=== PATIENT | female | born 1975 | race Two or more races ===

== ENCOUNTER 2025-01-09 13:37 | Emergency (ER) | payer MEDICAID, SELFPAY ==
[2025-01-09 13:47] VITALS: BP 112/69; PULSE 77; RESP 18; TEMP 36.9; O2SAT 95
--- NOTE | 2025-01-09 13:56 | XR_ITS ---
Examination: Abdomen sonogram, Limited Date and time of exam: January 09, 2025 1440 hours INDICATIONS: Epigastric pain beginning 2 days ago Technique: Real-time burnett scale transabdominal sonographic images of the upper abdomen obtained. Findings: Normal gallbladder Normal common bile duct 0.5 cm Pancreatic head 2.3 cm Liver 14.7 cm fatty infiltration smooth contour no focal liver lesions Normal hepatopedal portal venous flow Patent IVC IMPRESSION: Normal gallbladder Fatty liver
--- NOTE | 2025-01-09 13:57 | EDNOTE_ITS ---
<Statement entered by Shannon Steele MD - 01/09/25 17:41> As co-signing physician, I was present and available for consult prn. I concur with the plan and care as documented by the midlevel provider. ED Abdominal Pain RME/HPI General Chief Complaint: Abdominal Pain Stated complaint: Abdominal Pain since last night Time seen by provider: 01/09/25 13:52 Arrival date/time: 01/09/25 13:37 49-year-old female with no known medical history presents to the emergency room with a chief complaint of 7 out of 10 epigastric pain x 2 days Source: patient Mode of arrival: ambulatory Limitations: no limitations Related Data Home Medications ?Medication ?Instructions ?Recorded ?Confirmed gabapentin 300 mg capsule 300 mg PO TID 07/04/2410/17 Previous Rx's ?Medication ?Instructions ?Recorded ibuprofen 800 mg tablet 800 mg PO Q8H PRN fever or p ain 07/31/24 #30 tabs ibuprofen 800 mg tablet 800 mg PO Q8H PRN pain #30 t abs 10/11/24 Allergies Allergy/AdvReac Type Severity Reaction Status Date / Time No Known Drug Allergies Allergy Verified 10/17/24 16:14 Review of Systems Review of Systems Systems Reviewed: All systems reviewed, normal except as documented Constitutional Constitutional: Reports system reviewed and no additional complaints, except as documented, Denies fatigue, Denies fever(s), Denies headache(s) and Denies weakness Eyes Eyes: Reports system reviewed and no additional complaints, except as documented, Denies blurry vision and Denies change in vision ENT Ears, Nose, Mouth, and Throat: Reports system reviewed and no additional complaints, except as documented, Denies otalgia, Denies headache(s), Denies nasal congestion, Denies throat swelling and Denies vertigo Cardiovascular Cardiovascular: Reports system reviewed and no additional complaints, except as documented, Denies chest pain, Denies dyspnea and Denies dyspnea on exertion Respiratory Respiratory: Reports system reviewed and no additional complaints, except as documented, Denies chest congestion, Denies cough, Denies dyspnea, Denies dyspnea on exertion and Denies wheezing Gastrointestinal Gastrointestinal: Reports system reviewed and no additional complaints, except as documented, Reports abdominal pain, Reports cramping, Reports dyspepsia, Denies nausea and Denies vomiting Genitourinary Genitourinary: Reports system reviewed and no additional complaints, except as documented Musculoskeletal Musculoskeletal: Reports system reviewed and no additional complaints, except as documented and Denies back pain Integumentary/Breasts Skin/Breast: Reports system reviewed and no additional complaints, except as documented and Denies wounds Neurologic Neurologic: Reports system reviewed and no additional complaints, except as documented, Denies confusion, Denies headache(s), Denies lack of coordination, Denies vertigo and Denies weakness Psychiatric Psychiatric: Reports system reviewed and no additional complaints, except as documented, Denies anxiety, Denies confusion, Denies depression, Denies paranoia, Denies suicidal ideation and Denies tactile hallucinations Endocrine Endocrine: Reports system reviewed and no additional complaints, except as documented and Denies fatigue Hematologic/Lymphatic Hematologic/Lymphatic: Reports system reviewed and no additional complaints, except as documented and Denies lymphadenopathy Allergic/Immunologic Allergic/Immunologic: Reports system reviewed and no additional complaints, except as documented, Denies throat swelling, Denies urticaria and Denies wheezing ED Exam General Limitations: Present no limitations General appearance: Present alert and in no apparent distress Head Head exam: Present atraumatic Eye Eye exam: Present normal appearance, PERRL and EOMI ENT ENT exam: Present normal exam, normal oropharynx and mucous membranes moist Neck Neck exam: Present normal inspection, full ROM and trachea midline Chest Chest inspection: Present normal inspection and symmetric chest wall rise Respiratory Respiratory exam: Present normal lung sounds bilaterally Cardiovascular Cardiovascular exam: Present regular rate, normal rhythm and normal heart sounds Abdominal Exam Abdominal exam: Present soft, tenderness and normal bowel sounds; Absent distention, guarding, rebound or Mondragon's sign Abdominal tenderness: Present epigastrium and moderate; Absent RLQ, LUQ or LLQ Extremities Exam Extremities exam: Present normal inspection and full ROM Back Exam Back exam: Present normal inspection and full ROM Neurological Exam Neurological exam: Present alert, oriented X3 and CN II-XII intact Psychiatric Psychiatric exam: Present normal affect and normal mood Skin Skin exam: Present warm, dry, intact and normal color Course Quality Measures none Orders Category Date Time Status US gall bladder Stat Exams 01/09/25 13:56 Completed CBC Stat Lab 01/09/25 14:13 Completed CMP [Comprehensive Metabolic Panel] Stat Lab 01/09/25 14:13 Completed HCG Qualitative,Urine Stat Lab 01/09/25 14:15 Completed Lipase Stat Lab 01/09/25 14:13 Completed UA [Urinalysis] Stat Lab 01/09/25 14:15 Completed Urine Culture Stat Lab 01/09/25 14:15 Received HYDROcodone*/APAP 5/325 [[place] 5/325] Med 01/09/25 13:57 Discontinued 1 tab PO X1 ONE Ondansetron Odt [Zofran Odt] Med 01/09/25 13:57 Discontinued 4 mg PO X1 ONE mg Hyd/Al Hyd/Jhony Susp [Maalox Susp] Med 01/09/25 13:57 Discontinued 30 ml PO X1 ONE Vital Signs Vital signs: Vital Signs Temperature 98.5 F 01/09/25 13:47 Pulse Rate 77 01/09/25 13:47 Respiratory Rate 18 01/09/25 13:47 Blood Pressure 112/69 01/09/25 13:47 Pulse Oximetry (%) 95 01/09/25 13:47 Oxygen Delivery Method Room Air 01/09/25 13:47 O2 saturation 95% within normal limits Abdominal Pain MDM MDM Narrative MDM Narrative:: 49-year-old female with no known medical history presents to the emergency room with a chief complaint of 7 out of 10 epigastric pain x 2 days Patient is hemodynamically stable and in no apparent distress Physical examination shows 7 out of 10 epigastric pain. The patient has a soft nontender lower abdomen. Patient denies any dysuria, hematuria, nausea, vomiting. There is no right lower quadrant abdominal pain. The patient has a negative Mondragon sign. Ultrasound of the gallbladder was completed and shows no cholecystitis and no cholelithiasis. There is a fatty liver CBC CMP and UA were negative for any acute findings Patient was discharged and educated to follow-up with primary care provider and return to the emergency room for any evidence of worsening signs or symptoms Patient data External records reviewed:: [facility] previous records Clinical information provided by:: patient Social determinants that could affect healthcare access:: none Patient has the following chronic illnesses:: No chronic illness How is presenting disease/condition affected by chronic disease/condition?: no chronic disease Evaluation data The following diagnostics were reviewed and interpreted by me:: lab results and radiology exam(s) Lab and/or radiology exams considered but not ordered:: No chronic illnesses Interpretation Summary: Ultrasound gallbladder-Findings: Normal gallbladder Normal common bile duct 0.5 cm Pancreatic head 2.3 cm Liver 14.7 cm fatty infiltration smooth contour no focal liver lesions Normal hepatopedal portal venous flow Patent IVC IMPRESSION: Normal gallbladder Fatty liver Medications / Prescriptions Medications or Prescriptions considered but not ordered:: Medication given Medication administrations:: Medication Administration History Discontinued Medications Hydrocodone Bitart/Acetaminophen (Hydrocodone/Apap 5/325 Tablet) 1 tab PO X1 ONE Stop: 01/09/25 13:58 Last Admin: 01/09/25 14:13 Dose: 1 tab Documented By: OA Al Hydrox/Mg Hydrox/Simethicone (Mg Hyd/Al Hyd/Jhony (Maalox Reg) Susp 30 Ml Udc) 30 ml PO X1 ONE Stop: 01/09/25 13:58 Last Admin: 01/09/25 14:13 Dose: 30 ml Documented By: OA Ondansetron HCl (Ondansetron Odt 4 Mg Tabrap) 4 mg PO X1 ONE; Protocol Stop: 01/09/25 13:58 Last Admin: 01/09/25 14:12 Dose: 4 mg Documented By: OA Medication given Consultations Consultation(s) initiated? (list below): No Diagnosis Differential diagnosis abdominal pain: abdominal pain, gastroenteritis and other (Cholelithiasis/cholecystitis) Most likely diagnosis given after review of the tests above:: Gastroenteritis Admission Indicated Admission indicated?: not indicated Admission Request Was there a request for admission?: No Disposition Plan Disposition Plan: Discharge Discharge Attestation Discharge Attestation: The patient and all family members were given an opportunity to ask questions and understood the discharge instructions. Discharge instructions specifically effects, indications for sooner follow up or return to the emergency department, and the expected course of current diagnosis. Patient condition: Stable Discharge Plan Plan Patient Disposition: HOME (Self Care) Disposition Comment: Stable Prescriptions/Referrals Prescriptions/Med Rec: No Action gabapentin 300 mg capsule 300 mg PO TID ibuprofen 800 mg tablet 800 mg PO Q8H PRN (Reason: fever or pain) Qty: 30 0RF ibuprofen 800 mg tablet 800 mg PO Q8H PRN (Reason: pain) Qty: 30 0RF Problem List Clinical Impression: Gastroenteritis Patient/Caregiver Discharge Instructions Education Materials: ED Gastroenteritis, Noninfectious Additional Instructions: Please follow-up with your primary care provider in the next 24 to 48 hours. The ultrasound of your gallbladder was completed and was negative for any acute findings. Please make an appointment with your primary care provider for further evaluation For any evidence of worsening signs or symptoms return to the emergency room immediately Print Language: Thai Stand Alone Forms: Radha Award Info., Patient Portal Info Letter PA/PET CARE TECHNICIAN Supervising Physician PA/PET CARE TECHNICIAN Supervising Physician: Dr. Steele
[2025-01-09] MEDS: ONDANSETRON ODT 4 MG TABRAP PO (14:12)
[2025-01-09] MEDS: MG HYD/AL HYD/SIME (Maalox Reg) SUSP 30 ML UDC PO (14:13)
[2025-01-09] MEDS: HYDROcodone/APAP 5/325 TABLET 1 TAB PO (14:13)
[2025-01-09 14:31] LABS: Collection Type, Urine Clean Catch
[2025-01-09 14:32] LABS: Basophils % (Auto) 0 % (0-2.5); Eosinophils # (Auto) 0.2 Thou/mm3 (0.0-0.5); Eosinophils % (Auto) 2 % (0-10); Hematocrit 39.1 % (36.0-46.0); Immature Granulocytes % (Auto) 1 % (0-0); Immature Granulocytes Auto 0.05 Thou/mm3 (0.00-0.00); Lymphocytes % (Auto) 34 % (10-50); Mean Corpuscular HGB Conc 33.2 g/dl (31.0-37.0); Mean Corpuscular Hemoglobin 29.5 pg (25.0-35.0); Mean Corpuscular Volume 89 fL (80-100); Monocytes # (Auto) 0.8 Thou/mm3 (0.0-0.8); Monocytes % (Auto) 9 % (0-12); Neutrophils # (Auto) 4.9 Thou/mm3 (1.8-7.7); Neutrophils % (Auto) 55 % (37-80); Nucleated Red Blood Cell % 0 /100 WBC (0); Platelet Count 238 Thou/mm3 (140-440); RDW Standard Deviation 45.2 fL (36.4-46.3); Red Blood Count 4.41 Miln/mm3 (4.00-5.20); White Blood Count 8.9 Thou/mm3 (3.6-11.0)
[2025-01-09 14:43] LABS: HCG Qualitative,Urine Negative
[2025-01-09 14:48] LABS: Bacteria,Urine 4+; Bilirubin,Urine Negative (Negative); Blood,Urine 2+ (Negative); Clarity,Urine Turbid (Clear/Hazy); Color,Urine Yellow (Lt Yel-Yel); Glucose, Urine Negative (Negative); Ketones,Urine Trace (Negative); Leukocyte Esterase,Urine Positive (Negative); Nitrite,Urine Positive (Negative); Protein,Urine 1+ (Neg - Trace); RBC,Urine 8 /hpf (0-3); Specific Gravity,Urine 1.032 (1.001-1.035); Squamous Epithelial Cell,Urine 8 /hpf (0-5); Urobilinogen,Urine Negative mg/dL (0.0-1.0); WBC,Urine 20 /hpf (0-5)
[2025-01-09 14:53] LABS: Alanine Aminotransferase 22 U/L (10-49); Albumin, Serum 4.3 gm/dL (3.5-5.0); Albumin/Globulin Ratio 1.6 (1.2-2.2); Alkaline Phosphatase 94 U/L (46-116); Anion Gap 7 (7-16); Aspartate Amino Transferase 25 U/L (0-34); BUN/Creatinine Ratio 29 Ratio (12-20); Bilirubin,Total 0.3 mg/dL (0.3-1.2); Blood Urea Nitrogen 20 mg/dL (9-23); Calcium 8.9 mg/dL (8.3-10.6); Calcium (Corrected) 8.9 mg/dL (8.5-10.1); Carbon Dioxide 28.3 mMol/L (20.0-31.0); Chloride 109 mMol/L (98-107); Creatinine (Component) 0.7 mg/dL (0.6-1.3); Estimated Creatinine Clearance 113.6 mL/min (>60); Globulin 2.7 gm/dL (2.3-3.5); Glucose 86 mg/dL (74-106); Lipase 60 U/L (12-53); Osmolality,Calculated 288 (275-295); Potassium 3.7 mMol/L (3.4-5.1); Sodium 144 mMol/L (136-145); eGFR > 60 See Note
== END 2025-01-09 15:51 | disposition home or self-care (01) ==
LOC: SERX 16:29
PROVIDERS: Nurse Practitioner Family; Emergency Provider Emergency Medicine; PCP Nurse Practitioner Family
DX: K52.9 Noninfective gastroenteritis and colitis, unspecified (principal); K76.0 Fatty (change of) liver, not elsewhere classified
CPT/HCPCS: 36415; 76705; 80053; 81001; 81025; 83690; 85025; 87077; 87086; 87186; 99284; Q0162; A9270

== ENCOUNTER 2025-02-13 20:34 | Emergency (ER) | payer MEDICAID, SELFPAY ==
[2025-02-13 20:52] VITALS: BP 110/68; PULSE 81; RESP 18; TEMP 36.7; O2SAT 96
--- NOTE | 2025-02-13 21:00 | PD.EDLOWEX ---
Lower Extremity Injury RME/HPI General Chief Complaint: Extremity Injury, Lower Stated Complaint: RIGHT SIDE PAIN AFTER FALL Time Seen by Provider: 02/13/25 20:54 Arrival date/time: 02/13/25 20:34 RME / HPI RME / HPI Narrative: This section includes all my notes and documentations, including HPI, PE, and ED course. Cirilo Avina MD HPI: 49yo female presents to the ED for a chief complaint of right lower back pain. Patient states she was walking out of her house when she tripped and fell, landing on her right side earlier tonight just CLERICAL COORDINATOR. She states she has since developed right lower back pain. She denies any head strikes or loss of consciousness. She denies any headache, neck pain, extremity pain, chest pain or any other associated symptoms. No other complaints reported. ROS: All negative except as documented in HPI. Physical Exam: General: Alert and oriented. In obvious pain. Eyes: Conjunctivae and lids clear. ENT: No nasal congestion. Neck: Supple. Heart: RRR. Lungs: No respiratory distress. Good air movement. No rhonchi, wheezing, rales. Abdomen: Soft and nontender. Back: Lower back tenderness. Legs: No clubbing, cyanosis, edema. Skin: Warm and dry. Neuro: Alert and oriented X 3. No peripheral motor deficits. I reviewed all diagnostic test results. My interpretation of the right femur x-ray is no acute findings. My review of the CT report is L5-S1 disc bulging. At this point, diagnoses include right sciatic nerve pain. Treatment here included morphine 10 mg IM. Significant improvement noted. Recommended supportive care and more outpatient workup. Based on my best medical judgment, made decision no further evaluation or treatment indicated at this time. Patient understands and agrees to the discharge instructions customized and printed, see below. Discharge Instructions from Dr. Avina: --After evaluation, we are dealing with Sciatica (same as Lumbar Radiculopathy or Spinal Stenosis). Disc bulging is pinching the nerve going into your right leg. There is no cure. But time (several weeks) can heal the condition. --This condition is difficult because normal pain medications don?t work very well on nerve pain. --Despite the pain, try to resume your normal chores and activities. Because inactivity is terrible for this condition. And activity won?t make your condition worse. Use a cane of stick in your left hand to help stand and walk. --Use Ibuprofen and Tylenol with codeine and lidocaine patches as needed. Don't expect the pain to go away completely, hoping to take the edge off. --When resting and sleeping, try left sided position (with your knees to your chest and bending forward). This can take some pressure off the nerve and help your pain. --Apply ice or heat if helpful. --See a private doctor (outside the ER) on 02/18/2025 for recheck and further care. Ask to help you get more care not available here in the ER. Such as MRI imaging, physical therapy, and referrals to see specialists. Some choose to have surgery for this condition. But you need to have MRI imaging to confirm the diagnosis and assess the severity to get the best treatments. --Seek immediate medical care with paralysis in your foot, losing control of your bladder or bowels, saddle numbness (anal numbness), or with any concerns. Cirilo Avina MD Related Data Home Medications ?Medication ?Instructions ?Recorded ?Confirmed gabapentin 300 mg capsule 300 mg PO TID 07/04/24 10/17/24 Previous Rx's ?Medication ?Instructions ?Recorded ibuprofen 800 mg tablet 800 mg PO Q8H PRN fever or pain 07/31/24 #30 tabs ibuprofen 800 mg tablet 800 mg PO Q8H PRN pain #30 tabs 10/11/24 acetaminophen 300 mg-codeine 30 mg 2 tab PO Q8H PRN pain #20 tabs 02/13/25 tablet ibuprofen 800 mg tablet 800 mg PO Q8H PRN pain #30 tabs 02/13/25 lidocaine 5 % topical patch 2 patch topical QDAY PRN pain #30 02/13/25 (Lidoderm) ea Allergies Allergy/AdvReac Type Severity Reaction Status Date / Time No Known Drug Allergies Allergy Verified 10/17/24 16:14 Review of Systems Review of Systems Systems Reviewed: All systems reviewed, normal except as documented Past Medical History Past Medical History NEUROLOGIC: Negative Neurological Disorders or Seizures CARDIAC: Positive Hypercholesterolemia; Negative Cardiac Disorders or Congestive Heart Failure RESPIRATORY: Negative Chronic Obstructive Pulmonary Disease (COPD) GASTROINTESTINAL: Negative Gastrointestinal Disorders GENITOURINARY: Negative Genitourinary Disorders or Renal Disease MUSCULOSKELETAL: Negative Musculoskeletal Disorders ENDOCRINE: Negative Diabetes Mellitus Type 1 or Diabetes Mellitus Type 2 HEMATOLOGIC: Positive Anemia OTHER HISTORY: Negative Blood Transfusions, Blood Transfusion Reaction or Anesthesia Reactions Surgical History SURGICAL: Positive Hysterectomy and Section Social History SMOKING STATUS: Never smoker SECOND HAND EXPOSURE: No SUBSTANCE USE: does not use ED Exam Narrative Physical exam: As noted in HPI. Course Quality Measures none Orders Category Date Time Status CT lumbar spine wo con Stat Exams 02/13/25 21:01 Completed XR femur RT 2V Stat Exams 02/13/25 21:02 Completed Morphine Inj Med 02/13/25 21:01 Discontinued 10 mg IM X1 ONE Vital Signs Vital signs: Vital Signs Temperature 98.1 F 02/13/25 20:52 Pulse Rate 81 02/13/25 20:52 Respiratory Rate 18 02/13/25 20:52 Blood Pressure 110/68 02/13/25 20:52 Pulse Oximetry (%) 96 02/13/25 20:52 Oxygen Delivery Method Room Air 02/13/25 20:52 Extremity Injury, Lower MDM Narrative MDM Narrative:: Scribe Attestation: 02/13/25 - Julia Murillo am scribing for and in the presence of Dr. Avina. Patient data External records reviewed:: [facility] previous records (Per chart review, patient was seen here on 01/09/25 for gastroenteritis.) Clinical information provided by:: patient Social determinants that could affect healthcare access:: none Patient has the following chronic illnesses:: HLD How is presenting disease/condition affected by chronic disease/condition?: uneffected by Evaluation data The following diagnostics were reviewed and interpreted by me:: radiology exam(s) Lab and/or radiology exams considered but not ordered:: none Interpretation Summary: L5-S1 disc bulging Medications / Prescriptions Medications or Prescriptions considered but not ordered:: none Medication administrations:: Medication Administration History Discontinued Medications Morphine Sulfate (Morphine Sulf Inj 10 Mg/Ml Vial) 10 mg IM X1 ONE Stop: 02/13/25 21:02 Last Admin: 02/13/25 21:36 Dose: 10 mg Documented By: OA Morphine Consultations Consultation(s) initiated? (list below): No Diagnosis Extremity Injury, Lower Differential Diagnosis: other (Lumbar spine fracture, lumbar spinal stenosis, lumbar sprain/strain) Most likely diagnosis given after review of the tests above:: right sciatic nerve pain Admission Indicated Admission indicated?: not indicated Explain why admission is indicated or not indicated:: No criteria for admission. Admission Request Was there a request for admission?: No Disposition Plan Disposition Plan: Discharge Discharge Attestation Discharge Attestation: The patient and all family members were given an opportunity to ask questions and understood the discharge instructions. Discharge instructions specifically effects, indications for sooner follow up or return to the emergency department, and the expected course of current diagnosis. Patient condition: Stable Discharge Plan Plan Patient Disposition: HOME (Self Care) Prescriptions/Referrals Prescriptions/Med Rec: New ibuprofen 800 mg tablet 800 mg PO Q8H PRN (Reason: pain) Qty: 30 0RF acetaminophen-codeine 300-30 mg tablet 2 tab PO Q8H MDD 6 PRN (Reason: pain) Qty: 20 0RF lidocaine [Lidoderm] 5 % adhesive patch,medicated 2 patch topical QDAY PRN (Reason: pain) Qty: 30 0RF Rx Instructions: leave on most painful area for up to 12 hrs No Action gabapentin 300 mg capsule 300 mg PO TID ibuprofen 800 mg tablet 800 mg PO Q8H PRN (Reason: fever or pain) Qty: 30 0RF ibuprofen 800 mg tablet 800 mg PO Q8H PRN (Reason: pain) Qty: 30 0RF Referrals: Anil ARMANDO,CARROLL ReyesP [Primary Care Provider] - In 1 week Problem List Clinical Impression: Right sciatic nerve pain Patient/Caregiver Discharge Instructions Discharge Activity: activity as tolerated Education Materials: ED Sciatica Additional Instructions: Discharge Instructions from Dr. Avina: --After evaluation, we are dealing with Sciatica (same as Lumbar Radiculopathy or Spinal Stenosis). Disc bulging is pinching the nerve going into your right leg. There is no cure. But time (several weeks) can heal the condition. --This condition is difficult because normal pain medications don?t work very well on nerve pain. --Despite the pain, try to resume your normal chores and activities.? Because inactivity is terrible for this condition.? And activity won?t make your condition worse.? Use a cane of stick in your left hand to help stand and walk.? --Use Ibuprofen and Tylenol with codeine and lidocaine patches as needed.? Don't expect the pain to go away completely, hoping to take the edge off.?? --When resting and sleeping, try left sided position (with your knees to your chest and bending forward).? This can take some pressure off the nerve and help your pain. --Apply ice or heat if helpful. --See a private doctor (outside the ER) on 02/18/2025 for recheck and further care. Ask to help you get more care not available here in the ER.? Such as MRI imaging, physical therapy, and referrals to see specialists.? Some choose to have surgery for this condition. But you need to have MRI imaging to confirm the diagnosis and assess the severity to get the best treatments. --Seek immediate medical care with paralysis in your foot, losing control of your bladder or bowels, saddle numbness (anal numbness), or with any concerns.?? Instrucciones de mayte del Dr. Avina: --Despu?s de la evaluaci?n, se trata de ci?dayo (igual que radiculopat?a lumbar o estenosis presley). La protrusi?n discal comprime el nervio que va a la pierna derecha. No tiene megha. Cas con el tiempo (varias semanas) se puede curar la afecci?n. --Esta afecci?n es dif?cil porque los analg?sicos comunes no son muy eficaces para el dolor nervioso. --A pesar del dolor, intente reanudar didi tareas y actividades normales. La inactividad es terrible para esta afecci?n. La actividad no la empeorar?. Use un melissa?n en la mano izquierda para ayudarse a pararse y caminar. --Use ibuprofeno y Tylenol con parches de code?na y lidoca?na seg?n sea necesario. No espere que el dolor desaparezca por completo; espere que sea menos intenso. --Al descansar y dormir, intente la posici?n izquierda (con las rodillas hacia el pecho e inclinada hacia adelante). [place] puede aliviar la presi?n sobre el nervio y aliviar el dolor. --Aplique hielo o calor si le resulta ?til. --Consulte a un m?dico privado (fuera de urgencias) el 18/02/2025 para gorge revisi?n y atenci?n adicional. Solicite ayuda para obtener m?s atenci?n que no est? disponible aqu? en urgencias, angie resonancias magn?gustavo, fisioterapia y derivaciones a especialistas. Algunas personas optan por la cirug?a para esta afecci?n. Sin embargo, es necesario hacerse gorge resonancia magn?dayo para confirmar el diagn?stico y evaluar la gravedad para obtener los mejores tratamientos. --Busque atenci?n m?dica inmediata si presenta par?lisis en el pie, p?rdida del control de la vejiga o los intestinos, entumecimiento anal o cualquier otra inquietud. Print Language: Italian Stand Alone Forms: Radha Award Info., Patient Portal Info Letter
--- NOTE | 2025-02-13 21:01 | XR_ITS ---
Examination: CT lumbar spine without, contrast. 2-D sagittal reconstructions. 2-D coronal reconstructions. 3-D reconstructions. Date and time of exam:February 14, 2020 5:10 PM INDICATIONS: Patient fell today with injury to the lower back, lower back pain CTDI: vol (mGy): 23.6 DLP: (mGycm):599 Technique: Multiple 1.25 mm axial sections of the lumbar spine without intravenous contrast have been obtained. 2-D sagittal and coronal reconstructions have been obtained. 3-D reconstructions have been obtained. Low dose protocols were performed. One or more of the following dose reduction techniques were used; automated exposure control, adjustment of the mA and/or KV according to patient size, use of iterative reconstruction technique. Findings: Adequate alignment lumbar vertebral bodies No lumbar fracture Moderate to advanced disc narrowing at the lower 4 lumbar levels L5-S1 6 mm central lumbar disc bulge L4-L5, L3-L4 4 mm central lumbar disc bulges 6 mm right renal calculus IMPRESSION: No acute lumbar fracture. L5-S1 6 mm central lumbar disc bulge
--- NOTE | 2025-02-13 21:02 | XR_ITS ---
Examination: Right femur 2 views TECHNIQUE: AP lateral right femur 2 views Examination time: 2024 hours INDICATIONS: Patient fell today with injury to the femur, femur pain. FINDINGS: No acute hip fracture, no hip dislocation Shaft of the femur intact IMPRESSION: No acute fracture
[2025-02-13] MEDS: MORPHINE SULF INJ 10 MG/ML VIAL IM (21:36)
== END 2025-02-13 23:35 | disposition home or self-care (01) ==
PROVIDERS: Emergency Provider Emergency Medicine; PCP Nurse Practitioner Family
DX: S39.92XA Unspecified injury of lower back, initial encounter (principal); W01.0XXA Fall on same level from slipping, tripping and stumbling without subsequent striking against object, initial encounter; Y93.01 Activity, walking, marching and hiking; Y92.009 Unspecified place in unspecified non-institutional (private) residence as the place of occurrence of the external cause
CPT/HCPCS: 72131; 73552; 96372; 99284; J2270

== ENCOUNTER → 2025-03-28 | Outpatient (BNVA) | payer MEDICAID, SELFPAY | END | disposition home or self-care (01) | PROVIDERS: PCP Family Medicine; Referring Provider Family Medicine; Visit Provider Urology | DX: Z09 Encounter for follow-up examination after completed treatment for conditions other than malignant neoplasm (principal); Z87.440 Personal history of urinary (tract) infections; E66.9 Obesity, unspecified; Z68.31 Body mass index [BMI] 31.0-31.9, adult; E78.00 Pure hypercholesterolemia, unspecified | CPT/HCPCS: 81003; 99212; G0463 ==

== ENCOUNTER 2025-05-16 15:16 | Emergency (ER) | payer MEDICAID, SELFPAY ==
[2025-05-16 15:30] VITALS: BP 128/83; PULSE 71; RESP 18; TEMP 36.9; O2SAT 99; BMI 26.9
--- NOTE | 2025-05-16 15:44 | PD.EDEXREM ---
ED Extremity Problem RME/HPI General Chief complaint: Extremity Problem,Nontraumatic Stated complaint: Pain right leg today, burning right leg X 1 year Time Seen by Provider: 05/16/25 15:22 Arrival date/time: 05/16/25 15:16 50-year-old female presents to the emergency department today complaints of buttock pain right side that radiates down her right leg patient reports symptoms ongoing intermittently for the last 1 year. Patient with no fever nausea vomiting no saddle anesthesia no loss of bowel or bladder patient requesting an injection of morphine Limitations: no limitations Related Data Home Medications ?Medication ?Instructions ?Recorded ?Confirmed gabapentin 300 mg capsule 300 mg PO BID 03/28/25 03/28/25 nitrofurantoin 100 mg PO BID 03/28/25 03/28/25 monohydrate/macrocrystals 100 mg capsule (Macrobid) Previous Rx's ?Medication ?Instructions ?Recorded cyclobenzaprine 10 mg tablet 10 mg PO TID PRN muscle spasm 10 05/16/25 days #30 tab-caps ibuprofen 600 mg tablet 600 mg PO Q6H #30 tabs 05/16/25 tramadol 50 mg tablet 50 mg PO BID PRN pain #6 tabs 05/16/25 Allergies Allergy/AdvReac Type Severity Reaction Status Date / Time No Known Drug Allergies Allergy Verified 05/16/25 15:24 Review of Systems Review of Systems Systems Reviewed: All systems reviewed, normal except as documented Constitutional Constitutional: Reports system reviewed and no additional complaints, except as documented, Denies fever(s) and Denies headache(s) Eyes Eyes: Reports system reviewed and no additional complaints, except as documented and Denies blurry vision ENT Ears, Nose, Mouth, and Throat: Reports system reviewed and no additional complaints, except as documented, Denies headache(s), Denies nasal congestion and Denies nasal discharge Cardiovascular Cardiovascular: Reports system reviewed and no additional complaints, except as documented, Denies chest pain and Denies dyspnea Respiratory Respiratory: Reports system reviewed and no additional complaints, except as documented, Denies chest congestion, Denies cough and Denies dyspnea Gastrointestinal Gastrointestinal: Reports system reviewed and no additional complaints, except as documented and Denies abdominal pain Musculoskeletal Musculoskeletal: Reports system reviewed and no additional complaints, except as documented, Denies back pain, Denies deformity and Reports other (Right-sided leg pain radiating down right) Integumentary/Breasts Skin/Breast: Reports system reviewed and no additional complaints, except as documented and Denies rash Neurologic Neurologic: Reports system reviewed and no additional complaints, except as documented, Reports as per HPI and Denies headache(s) Past Medical History Past Medical History NEUROLOGIC: Negative Neurological Disorders or Seizures CARDIAC: Positive Hypercholesterolemia; Negative Cardiac Disorders or Congestive Heart Failure RESPIRATORY: Negative Chronic Obstructive Pulmonary Disease (COPD) GASTROINTESTINAL: Negative Gastrointestinal Disorders GENITOURINARY: Negative Genitourinary Disorders or Renal Disease MUSCULOSKELETAL: Negative Musculoskeletal Disorders ENDOCRINE: Negative Diabetes Mellitus Type 1 or Diabetes Mellitus Type 2 HEMATOLOGIC: Positive Anemia OTHER HISTORY: Negative Blood Transfusions, Blood Transfusion Reaction or Anesthesia Reactions Surgical History SURGICAL: Positive Hysterectomy and Section Social History SMOKING STATUS: Never smoker SECOND HAND EXPOSURE: No SUBSTANCE USE: does not use ED Exam General Limitations: Present no limitations General appearance: Present alert and in no apparent distress Head Head exam: Present atraumatic Eye Eye exam: Present normal appearance, PERRL and EOMI ENT ENT exam: Present normal exam, normal oropharynx and mucous membranes moist Neck Neck exam: Present normal inspection, full ROM and trachea midline Chest Chest inspection: Present normal inspection and symmetric chest wall rise Respiratory Respiratory exam: Present normal lung sounds bilaterally Cardiovascular Cardiovascular exam: Present regular rate, normal rhythm and normal heart sounds Abdominal Exam Abdominal exam: Present soft and normal bowel sounds Extremities Exam Extremities exam: Present normal inspection and full ROM Back Exam Back exam: Present normal inspection, full ROM, tenderness, sciatic notch tenderness (R) and straight leg raise (R); Absent CVA tenderness (R), CVA tenderness (L), muscle spasm, paraspinal tenderness or rashes Back 1 view image:  1. Pain Neurological Exam Neurological exam: Present alert, oriented X3 and CN II-XII intact Psychiatric Psychiatric exam: Present normal affect and normal mood Skin Skin exam: Present warm, dry, intact and normal color Course Quality Measures none Orders Category Date Time Status Dexamethasone Inj [Decadron Inj] Med 05/16/25 15:44 Discontinued 10 mg PO X1 ONE Ketorolac Inj [Toradol Inj] Med 05/16/25 15:44 Discontinued 30 mg IM X1 ONE Vital Signs Vital signs: Vital Signs Temperature 98.4 F 05/16/25 15:30 Pulse Rate 71 05/16/25 15:30 Respiratory Rate 18 05/16/25 15:30 Blood Pressure 128/83 05/16/25 15:30 Pulse Oximetry (%) 99 05/16/25 15:30 Oxygen Delivery Method Room Air 05/16/25 15:30 O2 saturation 99% room air within normal limits Extremity Problem MDM Narrative MDM Narrative:: 50-year-old female presents to the emergency department today complaints of buttock pain right side that radiates down her right leg patient reports symptoms ongoing intermittently for the last 1 year. Patient with no fever nausea vomiting no saddle anesthesia no loss of bowel or bladder patient requesting an injection of morphine On exam patient well-appearing patient does not appear toxic no acute distress patient walks with steady gait has no abnormal neurological findings On exam patient has tenderness over the right sciatic notch with positive straight leg test with reports of pain rating down the right leg. Symptoms highly consistent with sciatica at this time we will treat patient symptomatically and I instructed the patient to follow-up with her primary care doctor as this has been an ongoing problem for approximately 1 For emergent concerns patient is instructed return immediately Patient data External records reviewed:: [facility] previous records Clinical information provided by:: patient Social determinants that could affect healthcare access:: none Patient has the following chronic illnesses:: None How is presenting disease/condition affected by chronic disease/condition?: no chronic disease Evaluation data The following diagnostics were reviewed and interpreted by me:: other (specify) (N/A) Lab and/or radiology exams considered but not ordered:: Consider not ordered Interpretation Summary: N/A Medications / Prescriptions Medications or Prescriptions considered but not ordered:: Given Medication administrations:: Medication Administration History Discontinued Medications Dexamethasone Sodium Phosphate (Dexamethasone Sod Phos Inj 10 Mg/Ml Vial) 10 mg PO X1 ONE Stop: 05/16/25 15:45 Last Admin: 05/16/25 16:01 Dose: 10 mg Documented By: Ketorolac Tromethamine (Ketorolac Inj 30 Mg/Ml Vial) 30 mg IM X1 ONE Stop: 05/16/25 15:45 Last Admin: 05/16/25 16:00 Dose: 30 mg Documented By: Given Consultations Consultation(s) initiated? (list below): No Diagnosis Extremity Problem Differential Diagnosis: other (Hip pain, hip strain,) Most likely diagnosis given after review of the tests above:: Sciatica Admission Indicated Admission indicated?: not indicated Admission Request Was there a request for admission?: No Disposition Plan Disposition Plan: Discharge Discharge Attestation Discharge Attestation: The patient and all family members were given an opportunity to ask questions and understood the discharge instructions. Discharge instructions specifically effects, indications for sooner follow up or return to the emergency department, and the expected course of current diagnosis. Patient condition: Stable Discharge Plan Plan Patient Disposition: HOME (Self Care) Discharge Disposition comment: Stable Prescriptions/Referrals Prescriptions/Med Rec: New cyclobenzaprine 10 mg tablet 10 mg PO TID PRN (Reason: muscle spasm) 10 Days Qty: 30 0RF tramadol 50 mg tablet 50 mg PO BID PRN (Reason: pain) Qty: 6 0RF ibuprofen 600 mg tablet 600 mg PO Q6H Qty: 30 0RF No Action gabapentin 300 mg capsule 300 mg PO BID nitrofurantoin monohyd/m-cryst [Macrobid] 100 mg capsule 100 mg PO BID Rx Instructions: must administer with a meal/food Problem List Clinical Impression: Sciatica of right side Patient/Caregiver Discharge Instructions Education Materials: ED Sciatica Additional Instructions: Please follow up with your primary care doctor in the next 24-48hrs for any worsening symptoms return here immediately Print Language: [place] Stand Alone Forms: Radha Award Info., Patient Portal Info Letter PA/VISUAL LEAD Supervising Physician PA/VISUAL LEAD Supervising Physician: Dr renteria
[2025-05-16] MEDS: KETOROLAC INJ 30 MG/ML VIAL IM (16:00)
[2025-05-16] MEDS: DEXAMETHASONE SOD PHOS INJ 10 MG/ML VIAL PO (16:01)
== END 2025-05-16 16:05 | disposition home or self-care (01) ==
LOC: SERX 16:31
PROVIDERS: Emergency Provider Emergency Medicine; PCP Family Medicine
DX: M54.31 Sciatica, right side (principal)
CPT/HCPCS: 96372; 99283; J1100; J1885

== ENCOUNTER 2025-08-30 12:58 | Emergency (ER) | payer MEDICAID, SELFPAY ==
[2025-08-30 12:59] VITALS: BMI 31.5
[2025-08-30 14:27] VITALS: BP 136/81; PULSE 68; RESP 18; TEMP 36.9; O2SAT 95
--- NOTE | 2025-08-30 14:32 | PD.EDHA ---
ED Headache RME/HPI General Chief Complaint: Headache Stated Complaint: HEAD ACHE WITH ARM PAINS/TINGLING SINCE LAST NIGHT Time Seen by Provider: 08/30/25 13:43 Arrival date/time: 08/30/25 12:58 This is a 50-year-old female that comes in with complaints of upper back pain neck pain and occipital area head pain. Patient states she has feels like a lot of muscle tension in her shoulders and in her neck. Patient reports that she was in the refrigerator working yesterday and feels she might have been in her too long. Patient also complains of bilateral hands tingling. Patient states this is a chronic issue. Patient was diagnosed with neuropathy. Related Data Home Medications ?Medication ?Instructions ?Recorded ?Confirmed gabapentin 300 mg capsule 300 mg PO BID 03/28/25 03/28/25 nitrofurantoin 100 mg PO BID 03/28/25 03/28/25 monohydrate/macrocrystals 100 mg capsule (Macrobid) Previous Rx's ?Medication ?Instructions ?Recorded ibuprofen 600 mg tablet 600 mg PO Q6H #30 tabs 05/16/25 tramadol 50 mg tablet 50 mg PO BID PRN pain #6 tabs 05/16/25 cyclobenzaprine 10 mg tablet 10 mg PO BID #20 tabs 08/30/25 ibuprofen 800 mg tablet 800 mg PO Q6H PRN pain #20 tabs 08/30/25 Allergies Allergy/AdvReac Type Severity Reaction Status Date / Time No Known Drug Allergies Allergy Verified 08/30/25 13:03 Review of Systems Review of Systems Systems Reviewed: All systems reviewed, normal except as documented Past Medical History Past Medical History NEUROLOGIC: Negative Neurological Disorders or Seizures CARDIAC: Positive Hypercholesterolemia; Negative Cardiac Disorders or Congestive Heart Failure RESPIRATORY: Negative Chronic Obstructive Pulmonary Disease (COPD) GASTROINTESTINAL: Negative Gastrointestinal Disorders GENITOURINARY: Negative Genitourinary Disorders or Renal Disease MUSCULOSKELETAL: Negative Musculoskeletal Disorders ENDOCRINE: Negative Diabetes Mellitus Type 1 or Diabetes Mellitus Type 2 HEMATOLOGIC: Positive Anemia OTHER HISTORY: Negative Blood Transfusions, Blood Transfusion Reaction or Anesthesia Reactions Surgical History SURGICAL: Positive Hysterectomy and Section Social History SMOKING STATUS: Never smoker SECOND HAND EXPOSURE: No SUBSTANCE USE: does not use ED Exam Narrative Physical exam: VITAL SIGNS: Reviewed. GENERAL APPEARANCE: Alert and interactive, follows commands, no acute distress HEAD AND FACE: Non-traumatic. ENT: PERRL, conjuctiva pink and clear, eyelid no trauma, Mucous membrane moist. NECK: Supple, nontender, no nuchal rigidity. CHEST: No tenderness, no crepitus, no paradoxical movement, no retractions. LUNGS: breathing even and unlabored HEART: Regular rate, cap refill less than 2 seconds ABDOMEN: Soft, nondistended, no guarding, nontender, no rebound, no masses, NEUROLOGICAL: Gross motor function intact sensory function intact, Appropriate for age. MUSCULOSKELETAL: low back nontender, full range of motion. no midline tenderness, no meningismus, no step offs EXTREMITIES: No redness no swelling no skin breakdown on bilateral foot and leg. Distal neurovascular status intact bilateral foot SKIN: Color pink, dry, no rashs. Course Quality Measures none Orders Category Date Time Status CYCLObenzaPRINE [Flexeril] Med 08/30/25 14:30 Discontinued 10 mg PO X1 ONE Ketorolac Inj [Toradol Inj] Med 08/30/25 14:30 Discontinued 60 mg IM X1 ONE Metoclopramide [Reglan] Med 08/30/25 14:30 Discontinued 10 mg PO X1 ONE Ondansetron Odt [Zofran Odt] Med 08/30/25 14:31 Discontinued 4 mg PO X1 ONE Vital Signs Vital signs: Vital Signs Temperature 98.4 F 08/30/25 14:27 Pulse Rate 68 08/30/25 14:27 Respiratory Rate 18 08/30/25 14:27 Blood Pressure 136/81 H 08/30/25 14:27 Pulse Oximetry (%) 95 08/30/25 14:27 Oxygen Delivery Method Room Air 08/30/25 14:27 Headache MDM Narrative MDM Narrative:: I spoke to patient at length. Patient feels better. Patient's headaches better. Patient states that she takes gabapentin for neuropathy in her hands and wanted to see if there is something else that patient can take. patient has tingling in her hands but this has been a chronic issue and is not new. Patient has no focal weakness on either side. Patient has no numbness. I spoke to patient at length and told her to follow-up with primary provider in 1 to 2 days. Come back to the emergency room symptoms change or worsen. I will send patient home on anti-inflammatories and muscle relaxer. Patient data External records reviewed:: [facility] previous records Clinical information provided by:: patient Social determinants that could affect healthcare access:: none Patient has the following chronic illnesses:: None How is presenting disease/condition affected by chronic disease/condition?: no chronic disease Evaluation data The following diagnostics were reviewed and interpreted by me:: other (specify) (None) Lab and/or radiology exams considered but not ordered:: None Interpretation Summary: See note Medications / Prescriptions Medications or Prescriptions considered but not ordered:: None Medication administrations:: Medication Administration History Discontinued Medications Cyclobenzaprine HCl (Cyclobenzaprine 5 Mg Tablet) 10 mg PO X1 ONE Stop: 08/30/25 14:31 Last Admin: 08/30/25 14:39 Dose: 10 mg Documented By: OA Ketorolac Tromethamine (Ketorolac Inj 60 Mg/2 Ml Vial) 60 mg IM X1 ONE Stop: 08/30/25 14:31 Last Admin: 08/30/25 14:40 Dose: 60 mg Documented By: SOFÍA Metoclopramide HCl (Metoclopramide 5 Mg Tablet) 10 mg PO X1 ONE Stop: 08/30/25 14:31 Last Admin: 08/30/25 14:39 Dose: 10 mg Documented By: SOFÍA Ondansetron HCl (Ondansetron Odt 4 Mg Tabrap) 4 mg PO X1 ONE; Protocol Stop: 08/30/25 14:32 Last Admin: 08/30/25 14:39 Dose: 4 mg Documented By: OA See MAR Consultations Consultation(s) initiated? (list below): No Diagnosis Differential diagnosis headache: migraine, tension headache, headache and sinusitis Most likely diagnosis given after review of the tests above:: Headache Admission Indicated Admission indicated?: not indicated Admission Request Was there a request for admission?: No Disposition Plan Disposition Plan: Discharge Discharge Attestation Discharge Attestation: The patient and all family members were given an opportunity to ask questions and understood the discharge instructions. Discharge instructions specifically effects, indications for sooner follow up or return to the emergency department, and the expected course of current diagnosis. Patient condition: Stable Discharge Plan Plan Patient Disposition: HOME (Self Care) Patient condition on transfer: Stable Prescriptions/Referrals Prescriptions/Med Rec: New ibuprofen 800 mg tablet 800 mg PO Q6H PRN (Reason: pain) Qty: 20 0RF cyclobenzaprine 10 mg tablet 10 mg PO BID Qty: 20 0RF No Action gabapentin 300 mg capsule 300 mg PO BID nitrofurantoin monohyd/m-cryst [Macrobid] 100 mg capsule 100 mg PO BID Rx Instructions: must administer with a meal/food tramadol 50 mg tablet 50 mg PO BID PRN (Reason: pain) Qty: 6 0RF ibuprofen 600 mg tablet 600 mg PO Q6H Qty: 30 0RF Referrals: Alexandr Qureshi MD [Primary Care Provider, Family Practice] - In 1 week Problem List Clinical Impression: Headache, Muscle tension pain Patient/Caregiver Discharge Instructions Discharge Activity: activity as tolerated Education Materials: Self-Care for Headaches Additional Instructions: Jermaine un norma con barber medico de cabecera en las proximas 24-48 horas. Regrese a la naomy de emergencias si hay evidencia de que los signos o sintomas empeoran. Print Language: [place] Stand Alone Forms: Radha Award Info., Patient Portal Info Letter PA/FLUORESCENT LIGHTING MODEL MAKER Supervising Physician PA/FLUORESCENT LIGHTING MODEL MAKER Supervising Physician: NU
[2025-08-30] MEDS: METOCLOPRAMIDE 5 MG TABLET 10 MG PO (14:39)
[2025-08-30] MEDS: ONDANSETRON ODT 4 MG TABRAP PO (14:39)
[2025-08-30] MEDS: KETOROLAC INJ 60 MG/2 ML VIAL IM (14:40)
== END 2025-08-30 16:20 | disposition home or self-care (01) ==
PROVIDERS: Emergency Provider Emergency Medicine; PCP Family Medicine
DX: M79.18 Myalgia, other site (principal); R51.9 Headache, unspecified; G62.9 Polyneuropathy, unspecified; E78.00 Pure hypercholesterolemia, unspecified; Z79.899 Other long term (current) drug therapy
CPT/HCPCS: 96372; 99283; J1885; Q0162; A9270

== ENCOUNTER 2025-10-04 12:57 | Emergency (ER) | payer MEDICAID, SELFPAY ==
[2025-10-04 13:04] VITALS: BP 136/80; PULSE 84; RESP 20; TEMP 36.9; O2SAT 97
--- NOTE | 2025-10-04 13:25 | PD.EDFMALE ---
ED Female Urogenital RME/HPI General Chief complaint: Urogenital-Female Stated complaint: Lower back pain, stones in her urine Time Seen by Provider: 10/04/25 13:05 Arrival date/time: 10/04/25 12:57 This is a 50-year-old female that comes into the emergency room with complaints of lower back pain. Patient states that she thinks it is her kidney stones. Patient reports that she has been diagnosed with kidney stones in the past. Patient has a history of complete hysterectomy in 2020. Related Data Home Medications ?Medication ?Instructions ?Recorded ?Confirmed gabapentin 300 mg capsule 300 mg PO BID 03/28/25 03/28/25 nitrofurantoin 100 mg PO BID 03/28/25 03/28/25 monohydrate/macrocrystals 100 mg capsule (Macrobid) Previous Rx's ?Medication ?Instructions ?Recorded ibuprofen 600 mg tablet 600 mg PO Q6H #30 tabs 05/16/25 tramadol 50 mg tablet 50 mg PO BID PRN pain #6 tabs 05/16/25 cyclobenzaprine 10 mg tablet 10 mg PO BID #20 tabs 08/30/25 ibuprofen 800 mg tablet 800 mg PO Q6H PRN pain #20 tabs 08/30/25 ibuprofen 800 mg tablet 800 mg PO Q6H PRN pain #20 tabs 10/04/25 benzonatate 100 mg capsule 100 mg PO BID PRN cough #14 caps 10/10/25 Allergies Allergy/AdvReac Type Severity Reaction Status Date / Time No Known Drug Allergies Allergy Verified 10/10/25 12:40 Review of Systems Review of Systems Systems Reviewed: All systems reviewed, normal except as documented Past Medical History Past Medical History NEUROLOGIC: Negative Neurological Disorders or Seizures CARDIAC: Positive Hypercholesterolemia; Negative Cardiac Disorders or Congestive Heart Failure RESPIRATORY: Negative Chronic Obstructive Pulmonary Disease (COPD) GASTROINTESTINAL: Negative Gastrointestinal Disorders GENITOURINARY: Negative Genitourinary Disorders or Renal Disease MUSCULOSKELETAL: Negative Musculoskeletal Disorders ENDOCRINE: Negative Diabetes Mellitus Type 1 or Diabetes Mellitus Type 2 HEMATOLOGIC: Positive Anemia OTHER HISTORY: Negative Blood Transfusions, Blood Transfusion Reaction or Anesthesia Reactions Surgical History SURGICAL: Positive Hysterectomy and Section Social History SMOKING STATUS: Never smoker SECOND HAND EXPOSURE: No SUBSTANCE USE: does not use ED Exam Narrative Physical exam: VITAL SIGNS: Reviewed. GENERAL APPEARANCE: Alert and interactive, follows commands, no acute distress, HEAD AND FACE: Non-traumatic. ENT: PERRL, conjuctiva pink and clear, eyelid no trauma, Mucous membrane moist. NECK: Supple, nontender, no nuchal rigidity. CHEST: No tenderness, no crepitus, no paradoxical movement, no retractions. LUNGS: Breathing even and unlabored HEART: Cap refill less than 2 seconds ABDOMEN: Soft, nondistended, no guarding, nontender, no rebound, no masses, NEUROLOGICAL: Gross motor function intact sensory function intact, Appropriate for age. MUSCULOSKELETAL: low back nontender, full range of motion.no midline tenderness, no meningismus, no step offs EXTREMITIES: No redness no swelling no skin breakdown on bilateral foot and leg. Distal neurovascular status intact bilateral foot SKIN: Color pink, dry . Course Quality Measures none Orders Category Date Time Status Bedside COVID-19 Antigen Test NOW Care 10/04/25 13:[address] abdomen pelvis wo con Stat Exams 10/04/25 15:56 Completed CBC Stat Lab 10/04/25 13:37 Completed Comprehensive Metabolic Panel Stat Lab 10/04/25 13:37 Completed HCG Qualitative,Urine Stat Lab 10/04/25 13:43 Completed Influenza A & B Rapid Panel Stat Lab 10/04/25 18:30 Completed Urinalysis, C/S if Indicated Stat Lab 10/04/25 13:43 Completed Urine Culture Stat Lab 10/04/25 13:43 Completed Acetaminophen Tab [Tylenol ES Tab] Med 10/04/25 13:24 Discontinued 1,000 mg PO X1 ONE Ibuprofen Tab [Motrin Tab] Med 10/04/25 13:24 Discontinued 800 mg PO X1 ONE cefTRIAXone [Rocephin] 1,000 mg Med 10/04/25 18:07 Discontinued Lidocaine 1% Vial 20 ml [Xylocaine 1% 20 ML] 2.1 ml IM X1 Vital Signs Vital signs: Vital Signs Temperature 98.5 F 10/04/25 13:04 Pulse Rate 84 10/04/25 13:04 Respiratory Rate 20 10/04/25 13:04 Blood Pressure 136/80 H 10/04/25 13:04 Pulse Oximetry (%) 97 10/04/25 13:04 Oxygen Delivery Method Room Air 10/04/25 13:04 Urogenital - Female MDM Narrative MDM Narrative:: Labs reviewed CBC unremarkable BMP unremarkable liver function unremarkable urine has nitrites blood leukocyte esterase RBCs and white blood cells. Patient has a UTI. Patient is convinced that she also has kidney stones. Patient was told at 1 point that she has kidney stones. Patient wants to make sure she does not have kidney stones and that is why she has blood in her urine. Will order CTs of abdomen pelvis. Otherwise we will treat for UTI. Patient was given Tylenol ibuprofen and feels better. ct abdomen and pelvis: Findings: No solid liver lesions or biliary tract dilatation No gallstones No pancreatic or adrenal mass. No renal or ureteral calculi. Moderate stool throughout the colon no obstruction. Normal appendix. Tiny fat-containing umbilical hernia No bladder mass or bladder calculi No pelvic mass Degenerative change lumbar spine IMPRESSION: No renal or ureteral calculi, no hydronephrosis No bladder mass or bladder calculi Normal appendix Dragon dictation: Although this document has been carefully reviewed, there may still be some phonetic and other typographical errors. These errors are purely grammatical due to imperfections in the software program and should not be construed in any way to compromise the substance of the patient's medical care during this visit. Patient data External records reviewed:: [facility] previous records Clinical information provided by:: patient Social determinants that could affect healthcare access:: none Patient has the following chronic illnesses:: none How is presenting disease/condition affected by chronic disease/condition?: no chronic disease Evaluation data The following diagnostics were reviewed and interpreted by me:: lab results and radiology exam(s) Lab and/or radiology exams considered but not ordered:: none Interpretation Summary: see note Medications / Prescriptions Medications or Prescriptions considered but not ordered:: none Medication administrations:: Medication Administration History Discontinued Medications Acetaminophen (Acetaminophen 500 Mg Tablet) 1,000 mg PO X1 ONE Stop: 10/04/25 13:25 Last Admin: 10/04/25 14:25 Dose: 1,000 mg Documented By: BD Ceftriaxone Sodium 1,000 mg/ (Lidocaine HCl 2.1 ml) 0 mg IM X1 ONE Stop: 10/04/25 18:08 Last Admin: 10/04/25 19:44 Dose: 1,000 mg Documented By: MELCHOR Ibuprofen (Ibuprofen Tab 400 Mg Tablet) 800 mg PO X1 ONE Stop: 10/04/25 13:25 Last Admin: 10/04/25 14:24 Dose: 800 mg Documented By: CECILIO see [facility] Consultations Consultation(s) initiated? (list below): No Diagnosis Urogenital Female Differential Diagnosis: urinary tract infection, cystitis and other (uti) Most likely diagnosis given after review of the tests above:: uti hematuria Admission Indicated Admission indicated?: not indicated Admission Request Was there a request for admission?: No Disposition Plan Disposition Plan: Discharge Discharge Attestation Discharge Attestation: The patient and all family members were given an opportunity to ask questions and understood the discharge instructions. Discharge instructions specifically effects, indications for sooner follow up or return to the emergency department, and the expected course of current diagnosis. Patient condition: Stable Discharge Plan Plan Patient Disposition: HOME (Self Care) Prescriptions/Referrals Prescriptions/Med Rec: New ibuprofen 800 mg tablet 800 mg PO Q6H PRN (Reason: pain) Qty: 20 0RF No Action gabapentin 300 mg capsule 300 mg PO BID nitrofurantoin monohyd/m-cryst [Macrobid] 100 mg capsule 100 mg PO BID Rx Instructions: must administer with a meal/food tramadol 50 mg tablet 50 mg PO BID PRN (Reason: pain) Qty: 6 0RF ibuprofen 600 mg tablet 600 mg PO Q6H Qty: 30 0RF benzonatate 100 mg capsule 100 mg PO BID PRN (Reason: cough) Qty: 14 0RF ibuprofen 800 mg tablet 800 mg PO Q6H PRN (Reason: pain) Qty: 20 0RF cyclobenzaprine 10 mg tablet 10 mg PO BID Qty: 20 0RF Referrals: Alexandr Qureshi MD [Primary Care Provider, Family Practice] - In 1 week Problem List Clinical Impression: UTI (urinary tract infection), Hematuria Patient/Caregiver Discharge Instructions Discharge Activity: activity as tolerated Education Materials: ED Hematuria, ED CYSTITIS Female Adult Additional Instructions: Jermaine un norma con barber medico de cabecera en las proximas 24-48 horas. Regrese a la naomy de emergencias si hay evidencia de que los signos o sintomas empeoran. Print Language: German Stand Alone Forms: Radha Award Info., Patient Portal Info Letter PA/KELECHI Supervising Physician RYAN/KELECHI Supervising Physician: scott
[2025-10-04 13:53] LABS: Basophils # (Auto) 0.0 Thou/mm3 (0.0-0.2); Basophils % (Auto) 0 % (0-2.5); Eosinophils # (Auto) 0.3 Thou/mm3 (0.0-0.5); Eosinophils % (Auto) 4 % (0-10); Hematocrit 38.4 % (36.0-46.0); Hemoglobin 12.8 g/dL (12.0-16.0); Immature Granulocytes Auto 0.03 Thou/mm3 (0.00-0.00); Lymphocytes # (Auto) 1.5 Thou/mm3 (1.0-4.8); Lymphocytes % (Auto) 21 % (10-50); Mean Corpuscular HGB Conc 33.3 g/dl (31.0-37.0); Mean Corpuscular Hemoglobin 28.7 pg (25.0-35.0); Mean Corpuscular Volume 86 fL (80-100); Monocytes # (Auto) 0.7 Thou/mm3 (0.0-0.8); Monocytes % (Auto) 9 % (0-12); Neutrophils # (Auto) 4.7 Thou/mm3 (1.8-7.7); Neutrophils % (Auto) 66 % (37-80); Nucleated Red Blood Cell # 0.00 Thou/mm3 (0.00-0.00); Nucleated Red Blood Cell % 0 /100 WBC (0); Platelet Count 204 Thou/mm3 (140-440); RDW Standard Deviation 42.0 fL (36.4-46.3); Red Blood Count 4.46 Miln/mm3 (4.00-5.20); White Blood Count 7.2 Thou/mm3 (3.6-11.0)
[2025-10-04 13:53] LABS: Collection Type, Urine Voided
[2025-10-04 14:12] LABS: HCG Qualitative,Urine Negative
[2025-10-04 14:17] LABS: Bacteria,Urine 3+; Bilirubin,Urine Negative (Negative); Blood,Urine 1+ (Negative); Clarity,Urine Hazy (Clear/Hazy); Color,Urine Lt-Yellow (Lt Yel-Yel); Culture Indicated,Urine Yes; Glucose, Urine Negative (Negative); Ketones,Urine Negative (Negative); Leukocyte Esterase,Urine Positive (Negative); Nitrite,Urine Positive (Negative); PH,Urine 6.0 (5.0-7.0); Protein,Urine Negative (Neg - Trace); RBC,Urine 9 /hpf (0-3); Specific Gravity,Urine 1.017 (1.001-1.035); Squamous Epithelial Cell,Urine 1 /hpf (0-5); Urobilinogen,Urine Negative mg/dL (0.0-1.0); WBC,Urine 9 /hpf (0-5)
[2025-10-04] MEDS: IBUPROFEN TAB 400 MG TABLET 800 MG PO (14:24)
[2025-10-04] MEDS: ACETAMINOPHEN 500 MG TABLET 1000 MG PO (14:25)
[2025-10-04 14:37] LABS: Alanine Aminotransferase 21 U/L (10-49); Albumin, Serum 4.8 gm/dL (3.5-5.0); Albumin/Globulin Ratio 1.9 (1.2-2.2); Alkaline Phosphatase 110 U/L (46-116); Anion Gap 9 (7-16); Aspartate Amino Transferase 28 U/L (0-34); BUN/Creatinine Ratio 13 Ratio (12-20); Bilirubin,Total 0.4 mg/dL (0.3-1.2); Blood Urea Nitrogen 8 mg/dL (9-23); Calcium 9.2 mg/dL (8.3-10.6); Calcium (Corrected) 9.2 mg/dL (8.5-10.1); Carbon Dioxide 28.0 mMol/L (20.0-31.0); Chloride 106 mMol/L (98-107); Creatinine (Component) 0.6 mg/dL (0.6-1.3); Globulin 2.5 gm/dL (2.3-3.5); Glucose 91 mg/dL (74-106); Osmolality,Calculated 283 (275-295); Potassium 3.7 mMol/L (3.4-5.1); Sodium 143 mMol/L (136-145); Total Protein 7.3 gm/dL (5.7-8.2); eGFR > 60 See Note
--- NOTE | 2025-10-04 15:56 | XR_ITS ---
Examination: CT abdomen and pelvis without contrast. Coronal 3-D reconstructions. Sagittal 2-D reconstructions. Date and time of exam: October 04, 2025, 1611 hours INDICATIONS: Abdominal pain flank pain today CTDI: vol (mGy): 8.84 DLP: (mGycm): 448 Technique: Axial images of the abdomen have been obtained, 3 mm slice thickness Intravenous contrast material has not been administered. Low dose protocols were performed. One or more of the following dose reduction techniques were used; automated exposure control, adjustment of the mA and/or KV according to patient size, use of iterative reconstruction technique. Findings: No solid liver lesions or biliary tract dilatation No gallstones No pancreatic or adrenal mass. No renal or ureteral calculi. Moderate stool throughout the colon no obstruction. Normal appendix. Tiny fat-containing umbilical hernia No bladder mass or bladder calculi No pelvic mass Degenerative change lumbar spine IMPRESSION: No renal or ureteral calculi, no hydronephrosis No bladder mass or bladder calculi Normal appendix
--- NOTE | 2025-10-04 18:26 | PRELIM_ITS ---
CT scan of the abdomen and pelvis without intravenous contrast (axial sections with sagittal and coronal reformats) October 04, 2025 1611 hours Clinical History: hematuria Comparison: No prior study is available for comparison. Findings: Bibasilar dependent atelectasis is present. There is small hypodensity in the liver, too small to characterize. The gallbladder, pancreas, spleen, kidneys and adrenals are unremarkable on this noncontrast study. No evidence of bowel obstruction. A moderate amount of fecal material is present in the colon. The appendix is within normal limits (coronal images 63/139 ). A small fat-containing umbilical hernia is present. There is no mesenteric or retroperitoneal adenopathy. The urinary bladder is unremarkable. The uterus is not visualized. Calcific densities are seen in the pelvis, likely representing phleboliths. There is no free fluid or free air. Degenerative changes are identified in the spine. Impression: No evidence of bowel obstruction, free air or abscess. Report Electronically Signed By: Riri Miller 10/04/2025 6:25:45 PM [EST]
[2025-10-04 18:55] LABS: Influenza A Ag Negative; Influenza B Ag Negative
[2025-10-04] MEDS: cefTRIAXone 1,000 MG, LIDOCAINE 1% 20 ML 2.1 ML IM (19:44)
[2025-10-04 20:14] VITALS: BP 136/68; PULSE 70; RESP 18; TEMP 36.7; O2SAT 98
== END 2025-10-04 20:16 | disposition home or self-care (01) ==
PROVIDERS: Nurse Practitioner Family; Emergency Provider Emergency Medicine; PCP Family Medicine
DX: N39.0 Urinary tract infection, site not specified (principal); N20.0 Calculus of kidney
CPT/HCPCS: 36415; 74176; 80053; 81001; 81025; 85025; 87077; 87086; 87186; 87502; 87635; 96372; 99283; J0696; J3490; A9270

== ENCOUNTER 2025-10-10 12:39 | Emergency (ER) | payer MEDICAID, SELFPAY ==
[2025-10-10 12:40] VITALS: BMI 29.7
[2025-10-10 12:49] VITALS: BP 133/84; PULSE 78; RESP 22; TEMP 36.7; O2SAT 96
--- NOTE | 2025-10-10 12:54 | EKG_ITS ---
[facility] Test Date: 2025-10-10 Pat Name: MACI ORR Department: Room: - Gender: Female Cleat Blanker: : 1975 Requested By: Hilton Thorne Order Number: [id number] Reading MD: Hilton Thorne Measurements Intervals [place] Rate: 79 P: 51 DC: 154 QRS: 62 QRSD: 75 T: 67 QT: 355 QTc: 407 Interpretive Statements SINUS RHYTHM Compared to ECG 09/06/2024 13:44:32 Ventricular premature complex(es) no longer present /store/S0/[id number]/ecg/[id number].pdf
--- NOTE | 2025-10-10 12:54 | XR_ITS ---
EXAMINATION: PA chest single view TECHNIQUE: Upright PA chest single view Date and time: October 10, 2025, 1336 hours INDICATIONS: Chest pain cough and shortness of breath beginning 1 week ago. FINDINGS: Normal heart size Lungs are clear. Osseous structures are intact IMPRESSION: No active disease
--- NOTE | 2025-10-10 12:56 | PD.EDCHEST ---
ED Chest Pain RME/HPI General Chief Complaint: Flu Like Symptoms Stated Complaint: COUGH SENT BY CLINIC Time Seen by Provider: 10/10/25 12:41 Source: patient Arrival date/time: 10/10/25 12:39 50-year-old female with no known medical history presents to the emergency room with a chief complaint of left-sided sternal chest pain and cough x 3 days. Mode of arrival: ambulatory Limitations: no limitations Related Data Home Medications ?Medication ?Instructions ?Recorded ?Confirmed gabapentin 300 mg capsule 300 mg PO BID 03/28/25 03/28/25 nitrofurantoin 100 mg PO BID 03/28/25 03/28/25 monohydrate/macrocrystals 100 mg capsule (Macrobid) Previous Rx's ?Medication ?Instructions ?Recorded ibuprofen 600 mg tablet 600 mg PO Q6H #30 tabs 05/16/25 tramadol 50 mg tablet 50 mg PO BID PRN pain #6 tabs 05/16/25 cyclobenzaprine 10 mg tablet 10 mg PO BID #20 tabs 08/30/25 ibuprofen 800 mg tablet 800 mg PO Q6H PRN pain #20 tabs 08/30/25 cephalexin 500 mg capsule 500 mg PO BID 7 days #14 caps 10/04/25 ibuprofen 800 mg tablet 800 mg PO Q6H PRN pain #20 tabs 10/04/25 benzonatate 100 mg capsule 100 mg PO BID PRN cough #14 caps 10/10/25 Allergies Allergy/AdvReac Type Severity Reaction Status Date / Time No Known Drug Allergies Allergy Verified 10/10/25 12:40 Review of Systems Review of Systems Systems Reviewed: All systems reviewed, normal except as documented Constitutional Constitutional: Reports system reviewed and no additional complaints, except as documented, Denies fatigue, Denies fever(s), Denies headache(s) and Denies weakness Eyes Eyes: Reports system reviewed and no additional complaints, except as documented, Denies blurry vision and Denies change in vision ENT Ears, Nose, Mouth, and Throat: Reports system reviewed and no additional complaints, except as documented, Denies otalgia, Denies headache(s), Denies nasal congestion, Denies throat swelling and Denies vertigo Cardiovascular Cardiovascular: Reports system reviewed and no additional complaints, except as documented, Reports chest pain, Denies dyspnea and Denies dyspnea on exertion Respiratory Respiratory: Reports system reviewed and no additional complaints, except as documented, Denies chest congestion, Reports cough, Denies dyspnea, Denies dyspnea on exertion and Denies wheezing Gastrointestinal Gastrointestinal: Reports system reviewed and no additional complaints, except as documented, Denies abdominal pain, Denies cramping, Denies nausea and Denies vomiting Genitourinary Genitourinary: Reports system reviewed and no additional complaints, except as documented Musculoskeletal Musculoskeletal: Reports system reviewed and no additional complaints, except as documented and Denies back pain Integumentary/Breasts Skin/Breast: Reports system reviewed and no additional complaints, except as documented and Denies wounds Neurologic Neurologic: Reports system reviewed and no additional complaints, except as documented, Denies confusion, Denies headache(s), Denies lack of coordination, Denies vertigo and Denies weakness Psychiatric Psychiatric: Reports system reviewed and no additional complaints, except as documented, Denies anxiety, Denies confusion, Denies depression, Denies paranoia, Denies suicidal ideation and Denies tactile hallucinations Endocrine Endocrine: Reports system reviewed and no additional complaints, except as documented and Denies fatigue Hematologic/Lymphatic Hematologic/Lymphatic: Reports system reviewed and no additional complaints, except as documented and Denies lymphadenopathy Allergic/Immunologic Allergic/Immunologic: Reports system reviewed and no additional complaints, except as documented, Denies throat swelling, Denies urticaria and Denies wheezing Past Medical History Past Medical History NEUROLOGIC: Negative Neurological Disorders or Seizures CARDIAC: Positive Hypercholesterolemia; Negative Cardiac Disorders or Congestive Heart Failure RESPIRATORY: Negative Chronic Obstructive Pulmonary Disease (COPD) GASTROINTESTINAL: Negative Gastrointestinal Disorders GENITOURINARY: Negative Genitourinary Disorders or Renal Disease MUSCULOSKELETAL: Negative Musculoskeletal Disorders ENDOCRINE: Negative Diabetes Mellitus Type 1 or Diabetes Mellitus Type 2 HEMATOLOGIC: Positive Anemia OTHER HISTORY: Negative Blood Transfusions, Blood Transfusion Reaction or Anesthesia Reactions Surgical History SURGICAL: Positive Hysterectomy and Section Social History SMOKING STATUS: Never smoker SECOND HAND EXPOSURE: No SUBSTANCE USE: does not use ED Exam General Limitations: Present no limitations General appearance: Present alert and in no apparent distress Head Head exam: Present atraumatic Eye Eye exam: Present normal appearance, PERRL and EOMI ENT ENT exam: Present normal exam, normal oropharynx and mucous membranes moist Neck Neck exam: Present normal inspection, full ROM and trachea midline Chest Chest inspection: Present normal inspection and symmetric chest wall rise Respiratory Respiratory exam: Present normal lung sounds bilaterally; Absent respiratory distress, wheezes, stridor, accessory muscle use or prolonged expiratory phase Cardiovascular Cardiovascular exam: Present regular rate, normal rhythm, normal heart sounds, +S1 and +S2; Absent bradycardia, tachycardia, irregular rhythm, systolic murmur, diastolic murmur, rubs, gallop, clicks or JVD Abdominal Exam Abdominal exam: Present soft and normal bowel sounds Extremities Exam Extremities exam: Present normal inspection and full ROM Back Exam Back exam: Present normal inspection and full ROM Neurological Exam Neurological exam: Present alert, oriented X3 and CN II-XII intact Psychiatric Psychiatric exam: Present normal affect and normal mood Skin Skin exam: Present warm, dry, intact and normal color Course Quality Measures none Orders Category Date Time Status EKG (ED ONLY) *Do not use* NOW Care 10/10/25 12:54 Completed EKG (ED Only) Stat Exams 10/10/25 12:54 Draft XR chest 1V portable Stat Exams 10/10/25 12:54 Completed B-Type Natriuretic Peptide Stat Lab 10/10/25 12:15 Completed CBC Stat Lab 10/10/25 12:15 Completed Comprehensive Metabolic Panel Stat Lab 10/10/25 12:15 Completed Partial Thromboplastin Time Stat Lab 10/10/25 12:15 Completed Prothrombin Time with INR Stat Lab 10/10/25 12:15 Completed Troponin I Stat Lab 10/10/25 12:15 Completed Vital Signs Vital signs: Vital Signs Temperature 98.1 F 10/10/25 12:49 Pulse Rate 78 10/10/25 12:49 Respiratory Rate 22 H 10/10/25 12:49 Blood Pressure 133/84 H 10/10/25 12:49 Pulse Oximetry (%) 96 10/10/25 12:49 Oxygen Delivery Method Room Air 10/10/25 12:49 PROCEDURES: EKG Interpretation #1: Date of EK10/10/25 Rate: 69 Interpretation: Reviewed by me EKG Impression: Normal sinus rhythm Chest Pain MDM Narrative MDM Narrative:: 50-year-old female with no known medical history presents to the emergency room with a chief complaint of left-sided sternal chest pain and cough x 3 days. Patient is hemodynamically stable and in no apparent distress Physical examination shows clear bilateral lung sounds there is no wheezing or any abnormal breath sounds. Patient was sent over by [facility] to rule out pneumonia. During physical examination the patient is also complaining of left-sided sternal chest pain that is a 7 out of 10 in severity and radiates down her left arm causing numbness. Cardiac examination was within normal limits. CBC CMP and troponin were within normal limits. Chest x-ray was completed and was negative for any pneumonic infiltrates. EKG was completed and shows normal sinus rhythm at [address] deviation Patient was discharged and educated to follow-up with primary care provider in the next 24 to 48 hours and return to the emergency room for any evidence of worsening signs or symptoms Patient data External records reviewed:: [facility] previous records Clinical information provided by:: patient Social determinants that could affect healthcare access:: none Patient has the following chronic illnesses:: No chronic illness How is presenting disease/condition affected by chronic disease/condition?: no chronic disease Evaluation data The following diagnostics were reviewed and interpreted by me:: lab results and radiology exam(s) Lab and/or radiology exams considered but not ordered:: Labs and radiology exams considered and ordered Interpretation Summary: Chest [id number]: Normal heart size Lungs are clear. Osseous structures are intact IMPRESSION: No active disease Medications / Prescriptions Medications or Prescriptions considered but not ordered:: No medication Medication administrations:: No medication given Consultations Consultation(s) initiated? (list below): No Diagnosis Chest Pain Differential Diagnosis: pneumothorax, stable angina, atypical chest pain, st elevation myocardial infarction, costochondritis, chest pain and other (Community-acquired pneumonia/URI) Most likely diagnosis given after review of the tests above:: Upper respiratory infection Admission Indicated Admission indicated?: not indicated Admission Request Was there a request for admission?: No Disposition Plan Disposition Plan: Discharge Discharge Attestation Discharge Attestation: The patient and all family members were given an opportunity to ask questions and understood the discharge instructions. Discharge instructions specifically effects, indications for sooner follow up or return to the emergency department, and the expected course of current diagnosis. Patient condition: Stable Discharge Plan Plan Patient Disposition: HOME (Self Care) Prescriptions/Referrals Prescriptions/Med Rec: New benzonatate 100 mg capsule 100 mg PO BID PRN (Reason: cough) Qty: 14 0RF No Action gabapentin 300 mg capsule 300 mg PO BID nitrofurantoin monohyd/m-cryst [Macrobid] 100 mg capsule 100 mg PO BID Rx Instructions: must administer with a meal/food tramadol 50 mg tablet 50 mg PO BID PRN (Reason: pain) Qty: 6 0RF ibuprofen 600 mg tablet 600 mg PO Q6H Qty: 30 0RF cephalexin 500 mg capsule 500 mg PO BID 7 Days Qty: 14 0RF ibuprofen 800 mg tablet 800 mg PO Q6H PRN (Reason: pain) Qty: 20 0RF ibuprofen 800 mg tablet 800 mg PO Q6H PRN (Reason: pain) Qty: 20 0RF cyclobenzaprine 10 mg tablet 10 mg PO BID Qty: 20 0RF Problem List Clinical Impression: Upper respiratory infection, viral Patient/Caregiver Discharge Instructions Education Materials: ED URI, Viral, No Abx (Adult) Additional Instructions: Please follow-up with your primary care provider in the next 24 to 48 hours Your cardiac examination was within normal limits. Your chest x-ray was negative for any pneumonia Medication was sent to your pharmacy to help you with your coughing. Blood work was within normal limits For any evidence of worsening signs or symptoms return to the emergency room immediately Print Language: Uzbek Stand Alone Forms: Radha Award Info., Work/School Release, Patient Portal Info Letter PA/KELECHI Supervising Physician PA/KELECHI Supervising Physician: Dr. Mcdaniel
[2025-10-10 13:34] LABS: INR 1.0 (0.9-1.3); Partial Thromboplastin Time 26.4 Seconds (22.0-36.0); Prothrombin Time 10.8 Seconds (9.0-12.2)
[2025-10-10 13:38] LABS: B-Type Natriuretic Peptide 20 pg/mL (0-100)
[2025-10-10 13:39] LABS: Alanine Aminotransferase 24 U/L (10-49); Albumin, Serum 4.4 gm/dL (3.5-5.0); Albumin/Globulin Ratio 1.6 (1.2-2.2); Alkaline Phosphatase 101 U/L (46-116); Anion Gap 8 (7-16); Aspartate Amino Transferase 28 U/L (0-34); BUN/Creatinine Ratio 20 Ratio (12-20); Bilirubin,Total 0.3 mg/dL (0.3-1.2); Blood Urea Nitrogen 14 mg/dL (9-23); Calcium 9.3 mg/dL (8.3-10.6); Calcium (Corrected) 9.3 mg/dL (8.5-10.1); Carbon Dioxide 28.0 mMol/L (20.0-31.0); Chloride 107 mMol/L (98-107); Creatinine (Component) 0.7 mg/dL (0.6-1.3); Estimated Creatinine Clearance 92.9 mL/min (>60); Globulin 2.7 gm/dL (2.3-3.5); Glucose 104 mg/dL (74-106); Osmolality,Calculated 285 (275-295); Potassium 4.2 mMol/L (3.4-5.1); Sodium 143 mMol/L (136-145); Total Protein 7.1 gm/dL (5.7-8.2); Troponin I < 0.020 ng/mL (0.0-0.045); eGFR > 60 See Note
[2025-10-10 13:41] LABS: Basophils # (Auto) 0.0 Thou/mm3 (0.0-0.2); Basophils % (Auto) 1 % (0-2.5); Eosinophils # (Auto) 0.3 Thou/mm3 (0.0-0.5); Eosinophils % (Auto) 4 % (0-10); Hematocrit 38.0 % (36.0-46.0); Hemoglobin 12.8 g/dL (12.0-16.0); Immature Granulocytes Auto 0.06 Thou/mm3 (0.00-0.00); Lymphocytes # (Auto) 2.8 Thou/mm3 (1.0-4.8); Lymphocytes % (Auto) 38 % (10-50); Mean Corpuscular HGB Conc 33.7 g/dl (31.0-37.0); Mean Corpuscular Hemoglobin 29.2 pg (25.0-35.0); Mean Corpuscular Volume 87 fL (80-100); Monocytes # (Auto) 0.5 Thou/mm3 (0.0-0.8); Monocytes % (Auto) 7 % (0-12); Neutrophils # (Auto) 3.7 Thou/mm3 (1.8-7.7); Neutrophils % (Auto) 50 % (37-80); Nucleated Red Blood Cell # 0.00 Thou/mm3 (0.00-0.00); Nucleated Red Blood Cell % 0 /100 WBC (0); Platelet Count 243 Thou/mm3 (140-440); RDW Standard Deviation 41.6 fL (36.4-46.3); Red Blood Count 4.39 Miln/mm3 (4.00-5.20); White Blood Count 7.5 Thou/mm3 (3.6-11.0)
--- NOTE | 2025-11-26 07:00 | PD.EDADDENDU ---
Emergency Room Addendum Addendum Narrative: I reviewed 10/04/25 urine C&S and Angela's visit noted. Appropriate treatment provided. No further action necessary. Cirilo Avina MD
== END 2025-10-10 15:10 | disposition home or self-care (01) ==
PROVIDERS: Nurse Practitioner Family; Emergency Provider Family Medicine
DX: J06.9 Acute upper respiratory infection, unspecified (principal)
CPT/HCPCS: 36415; 71045; 80053; 83880; 84484; 85025; 85610; 85730; 93005; 99283